=== PATIENT | female | born 2000 | race Caucasian/White ===

== ENCOUNTER 2025-01-09 20:46 | Emergency (ER) | payer SELFPAY ==
[~2025-01-09] VITALS: Ht 157.5 cm; Wt 73.5 kg
[2025-01-09 20:59] VITALS: TEMP 98.5
[2025-01-09] MEDS ORDERED: CORTISPORIN-TC10 M1 LEFT EAR (22:37)
[2025-01-09] MEDS ORDERED: LISINOPRIL-HCT1 EAC2 PO (22:37)
[2025-01-09] MEDS ORDERED: METFORMIN HCL500 MG PO (22:37)
[2025-01-09 22:50] VITALS: BP 211/135
[2025-01-09] MEDS: CLONIDINE HCL 0.1 MG TAB PO ONE (22:50)
[2025-01-09 23:30] VITALS: PULSE 88; RESP 16; O2SAT 100
== END 2025-01-09 23:44 | disposition home or self-care (01) ==
LOC: ER 22:30
DX: H60.92 Unspecified otitis externa, left ear (principal); E11.65 Type 2 diabetes mellitus with hyperglycemia; I10 Essential (primary) hypertension
CPT/HCPCS: 36415; 82948; 99283